=== PATIENT | female | born 1955 | race Caucasian/White ===

== ENCOUNTER 2020-04-25 19:27 | Emergency (ER) | payer OTHER ==
[~2020-04-25] VITALS: Ht 165.1 cm; Wt 79.4 kg
--- NOTE | 2020-04-25 19:44 | NUR ---
PATIENT CAME TO ER BIB [facility] TO BED 11 C/O LEFT HIP PAIN. PER [facility] REPORT, PATIENT WAS FOUND IN THE [place] ST[place] ON THE GROUND. PATIENT STATES, "THE GROUND WAS UNEVEN AND SUDDENLY MOVED". DENIES HITTING HEAD. NO LOSS OF CONSCIOUSNESS. PATIENT ADMITS TO DRINKING ALCOHOL. AAOX3. NO SOB. BREATHING EVENLY AND UNLABORED ON ROOM AIR. Addendum: 04/25/20 at 7 by JOE ABRASION NOTED ON THE LEFT KNEE.
--- NOTE | 2020-04-25 19:53 | NUR ---
PATIENT PICKED UP BY .
--- NOTE | 2020-04-25 19:57 | NUR ---
PATIENT REFUSED CLEANING OF KNEE WHEN OFFERED.
--- NOTE | 2020-04-25 19:58 | NUR ---
Patient discharged to home in stable condition. Written and verbal after care instructions given. Patient verbalizes understanding of instruction.
[2020-04-25 19:59] VITALS: BP 130/83
== END 2020-04-25 19:59 | disposition home or self-care (01) ==
LOC: ER 19:33
DX: S40.812A Abrasion of left upper arm, initial encounter (principal); S40.811A Abrasion of right upper arm, initial encounter; S80.812A Abrasion, left lower leg, initial encounter; S80.811A Abrasion, right lower leg, initial encounter; F10.129 Alcohol abuse with intoxication, unspecified; I10 Essential (primary) hypertension; W18.39XA Other fall on same level, initial encounter; Y93.89 Activity, other specified; Y92.89 Other specified places as the place of occurrence of the external cause; Y99.8 Other external cause status; Y90.9 Presence of alcohol in blood, level not specified